=== PATIENT | female | born 1950 | race Asian ===

== ENCOUNTER 2018-07-02 09:38 | Emergency (ER) | payer OTHER ==
--- NOTE | 2018-07-02 09:56 | ED ---
Skin Complaint - HPI Summary HPI Summary: This patient is a 68-year-old female who presents to the urgent care with a chief complaint of having erythema, slight swelling in the left groin area. The patient was to make sure that she doesnt have a tick bite. She reports that she hasnt seen a tick and she has not seen any insects in the area. The patients has been trying to remove a black area with no the patient has the erythema. She denies any fevers, denies any joint pain she has no other complaints. - History of Current Complaint Time Seen by Provider: 07/02/18 09:54 Stated Complaint: TICK BITE PERSONAL Hx Obtained From: Patient Onset/Duration: Started Days Ago, Still Present Onset Severity: Mild Current Severity: Mild Pain Intensity: 0 - Additional Pertinent History Primary Care Physician: CODY - Allergy/Home Medications Allergies/Adverse Reactions: Allergies Allergy/AdvReac Type Severity Reaction Status Date / Time MS Penicillins [PCN] Allergy Unknown Verified 12/20/15 16:46 Reaction Details PMH/Surg Hx/FS Hx/Imm Hx Previously Healthy: Yes Endocrine/Hematology History: Reports: Hx Anemia - This is the first time. Cardiovascular History: Reports: Hx Hypercholesterolemia - mildly elevated-no medication Respiratory History: Denies: Hx Asthma Musculoskeletal History: Denies: Hx Osteoporosis Sensory History: Reports: Hx Contacts or Glasses Opthamlomology History: Reports: Hx Contacts or Glasses Neurological History: Reports: Hx Migraine - Cancer History Hx Chemotherapy: No Hx Radiation Therapy: No - Surgical History Surgery Procedure, Year, and Place: [facility] in early 30s. 1 Hx Anesthesia Reactions: Yes - N/V Infectious Disease History: Denies: Traveled Outside the [place] in Last 30 Days - Family History Known Family History: Positive: Unknown - Social History Alcohol Use: Occasionally Hx Substance Use: No Substance Use Type: Reports: None Hx Tobacco Use: No Smoking Status (MU): Never Smoked Tobacco Have You Smoked in the Last Year: No Review of Systems Constitutional: Negative Eyes: Negative ENT: Negative Cardiovascular: Negative Respiratory: Negative Gastrointestinal: Negative Genitourinary: Negative Musculoskeletal: Negative Skin: Negative Positive: Rash Neurological: Negative Psychological: Normal All Other Systems Reviewed And Are Negative: No Physical Exam - Summary Physical Exam Summary: Vital signs: Reviewed Gen.: Patient is a well developed and nourished female in no acute distress. Patient is sitting comfortably on the stretcher. Head: Normacephalic and atraumatic Eyes: PERRLA, EOMI x2. Ears: Right ear canal and TM WNL and Left ear canal and TM WNL Nose and mouth: WNL Neck: Supple, Positive bilateral submandibular and anterior cervical lymphadenopathy. No JVD Lungs: CTA B/L CVS: S1 & S2 present. No murmurs appreciated. ABDOMEN: Soft NT w/ positive BS. EXT: FROM x 4 SKIN: Positive folliculitis Triage Information Reviewed: Yes Vital Signs Reviewed: Yes Course/Dx - Course Assessment/Plan: It seems that the patient has a small folliculitis I do not see any tick bites or any redness of the tick. The patient was advised to use bacitracin or topical antibiotics. She was also recommended to return to the urgent care or follow up with the primary care physician if she develops MORE redness, painful area, or any other symptom. The patient understands and agrees. - Diagnoses Provider Diagnoses: Folliculitis Discharge - Sign-Out/Discharge Documenting (check all that apply): Patient Departure All imaging exams completed and their final reports reviewed: No Studies - Discharge Plan Condition: Stable Disposition: HOME Patient Education Materials: Folliculitis (ED) Referrals: Ginna Meesk MD [Primary Care Provider] - Additional Instructions: F/U wit PCP in 3-4 days - Billing Disposition and Condition Condition: STABLE Disposition: Home
[2018-07-02 10:07] VITALS: BP 100/58
== END 2018-07-02 10:12 | disposition home or self-care (01) ==
LOC: UCEAST 09:38
DX: L73.9 Follicular disorder, unspecified (principal); Z88.0 Allergy status to penicillin
CPT/HCPCS: 99211; G0463